=== PATIENT | female | born 1990 | race Caucasian/White ===

== ENCOUNTER 2019-08-28 15:36 | Outpatient (RCR) | payer OTHER, SELFPAY ==
[2019-08-30] MEDS: RHO(D) IMMUNE GLOBULIN 300 MCG SYRINGE IM (09:15)
== END 2019-11-26 23:59 | disposition home or self-care (01) ==
LOC: ANHLAB 15:36
PROVIDERS: PCP Internal Medicine; Visit Provider Obstetrics & Gynecology
DX: Z29.13 Encounter for prophylactic Rho(D) immune globulin (principal); O36.0990 Maternal care for other rhesus isoimmunization, unspecified trimester, not applicable or unspecified; Z3A.00 Weeks of gestation of pregnancy not specified
CPT/HCPCS: 36415; 90384; 96372; J2790

== ENCOUNTER 2019-10-29 11:22 | Outpatient (RCR) | payer OTHER, SELFPAY ==
--- NOTE | ~2019-10-29 | US_ITS ---
EXAMINATION: US OB limited w BPP DATE: 10/29/2019 13:09 INDICATION: Acute renal insufficiency. TECHNIQUE: Real-time pelvic ultrasound was performed. The interpreting radiologist was not present fo r the study. COMPARISON: None. FINDINGS: There is a single living fetus in vertex presentation. The placenta is posterior fundal. heart rate is 138 beats per minute (bpm). Amniotic fluid index measures 6.9 cm which is between [address] deviations below the mean (2.5th%-5th-95%: 6.6-7.5-24.4 cm at 37 weeks estimated gestational a ge). Biophysical profile performed by the technologist: breathing (30 sec sustained breathing in 30 minutes): 2 out of 2 movement (3 gross body movements in 30 minutes): 2 out of 2 tone (one episode of mabktox-fcdacpdfu-eyqtdfs limb movement): 2 out of 2 Amniotic fluid pocket (2 cm): 2 out of 2 Total score: 8 out of 8 IMPRESSION: 1. Single living fetus in vertex presentation with heart rate of 138 bpm. 2. Biophysical profile 8 out of 8. 3. Oligohydramnios with amniotic fluid index of 6.9 cm. Assess for possible leaking fluids. Reviewed, dictated and finalized at location A. F LOCK OPERATOR IMPRESSION: 1. Single living fetus in vertex presentation with heart rate of 138 bpm. 2. Biophysical profile 8 out of 8. 3. Oligohydramnios with amniotic fluid index of 6.9 cm. Assess for possible elliot aarti fluids.
[2019-10-29 14:13] VITALS: BP 111/73; PULSE 97
== END 2019-12-11 14:36 | disposition home or self-care (01) ==
LOC: ANHOBOP 11:22
PROVIDERS: PCP Internal Medicine; Visit Provider Obstetrics & Gynecology
DX: O36.8130 Decreased fetal movements, third trimester, not applicable or unspecified (principal); O41.03X0 Oligohydramnios, third trimester, not applicable or unspecified; Z3A.37 37 weeks gestation of pregnancy
CPT/HCPCS: 59025; 76815; 76819

== ENCOUNTER 2019-11-04 20:30 | Inpatient (IN) | payer OTHER, SELFPAY ==
[2019-11-04 20:45] VITALS: TEMP 37.1
--- NOTE | 2019-11-04 21:13 | WPDHPUPDATE1 ---
History and Physical Update Update Date/Time: 11/04/19 21:13 29 yo at 38w5d who presents in labor. She reports regular contractions. Pt had SROM while being evaluated in triage. She reports good FM and denies any vaginal bleeding. History and Physical has been reviewed, including an updated exam of the patient. There are NO changes in the patient's condition. Risks, benefits, and alternatives have been discussed and questions answered. Patient agrees to proceed with procedure. A/P: admit to L&D routine admission orders cvx /-3 SROM, clear fluid Rh+ GBS pos, will start PCN FHT cat 1 expectant management
[2019-11-04 21:15] VITALS: BMI 35.0
--- NOTE | 2019-11-04 21:21 | LDADM ---
This patient, Keira Mahoney, was admitted to Labor/Delivery/Recovery 109 on 11/04/19 at 20:30. Plans for labor, pain management and were discussed with patient. Patient/family oriented to hospital policies and general routines including ID bracelet, bed and alarms, visiting hours, pain management, procedures, bathroom and other care routines, personal items, smoking policy, room service/diet and guest tray routines, security routines, and visiting hours. Patient/Family are encouraged to report perceived risks to care and to ask questions if they do not understand what they are told or what they should do. See OBIX for further documentation.
[2019-11-04 21:26] LABS: Basophils Absolute Auto 0.1 K/mm3 (0.0-0.1); Basophils Percent Auto 0.7 % (0.2-1.2); Eosinophils Absolute Auto 0.3 K/mm3 (0-0.3); Eosinophils Percent Auto 3.1 % (0-4.4); Hematocrit 37.2 % (37.0-47.0); Hemoglobin 11.6 g/dL (12.0-15.0); Immature Granulocyte Absolute 0.23 K/mm3 (0.00-0.031); Immature Granulocyte Percent A 2.2 % (0-0.5); Lymphocytes Absolute Auto 1.94 K/mm3 (0.9-3.2); Lymphocytes Percent Auto 18.6 % (18.3-44.2); Mean Corpuscular HGB Conc 31.2 g/dl (32-36); Mean Corpuscular Hemoglobin 26.4 pg (26-34); Mean Corpuscular Volume 84.5 fl (80-100); Mean Platelet Volume 10.7 fl (7.4-10.4); Monocytes Absolute Auto 1.1 K/mm3 (0.1-0.6); Monocytes Percent Auto 10.3 % (2.6-8.5); Neutrophils Absolute Auto 6.8 K/mm3 (1.3-6.7); Neutrophils Percent Auto 65.1 % (45.5-73.1); Platelet Count Result 250 k/mm3 (150-375); Red Cell Distribution Width 14.5 % (11.5-14.5); White Blood Count 10.4 K/mm3 (4.5-10.0)
[2019-11-04] MEDS: LACTATED RINGERS 1,000 ML 125 ML IV CONT (21:29)
[2019-11-04] MEDS: AMPICILLIN 2 GM/NS 100 ML 2 GM/100 ML BAG IVPB (21:30)
[2019-11-04 22:30] VITALS: TEMP 36.5
[2019-11-04 22:59] VITALS: BP 117/77; PULSE 99
[2019-11-05] VITALS (68 sets, daily range): BP systolic 80–151; BP diastolic 35–104; PULSE 86–174; RESP 16–20; TEMP 36.6–37.7; O2SAT 95–100
[2019-11-05] MEDS: LACTATED RINGERS 1,000 ML 125 ML IV CONT (01:33)
[2019-11-05] MEDS: AMPICILLIN 1 GM/NS 50 ML 1 GM/50 ML BAG IVPB (01:35)
--- NOTE | 2019-11-05 02:05 | WPDANESEPPF ---
Anes - Initial Pre Proc Eval Procedure: labor epidural Date/Time: 11/05/19 02:05 Surgeon: Javad Lozano MD Pre Op Diagnosis: labor pain Pre Op Diagnosis: CONTRACTIONS Patient Data Age: 29 Gender: F Height: 1.57 m Weight: 87 kg Last Vital Signs Temp 36.6 C 11/05/19 00:04 Pulse 117 H 11/05/19 02:04 BP 119/58 L 11/05/19 02:04 Pulse Ox 98 11/05/19 02:00 Allergies Allergy/AdvReac Type Severity Reaction Status Date / Time No Known Allergies Allergy Verified 10/29/19 14:27 Home Medications Medication Instructions Recorded Confirmed Type PNV cmb#95-ferrous fumarate-FA 1 tablet PO DAILY 10/25/19 10/29/19 History [] albuterol sulfate 2 puff INHALATION QID PRN 10/25/19 10/29/19 History levothyroxine 50 mcg PO DAILY 10/25/19 11/05/19 History Laboratory Tests 11/04/19 11/04/19 11/04/19 21:18 21:18 21:18 WBC 10.4 K/mm3 H K/mm3 (4.5-10.0) RBC 4.40 M/mm3 M/mm3 (4.2-5.4) Hgb 11.6 g/dL L g/dL (12.0-15.0) Hct 37.2 % % (37.0-47.0) MCV 84.5 fl fl (80-100) MCH 26.4 pg pg (26-34) MCHC 31.2 g/dl L g/dl (32-36) RDW 14.5 % % (11.5-14.5) Plt Count 250 k/mm3 k/mm3 (150-375) MPV 10.7 fl H fl (7.4-10.4) Immature Gran % (Auto) 2.2 % H % (0-0.5) Neut % (Auto) 65.1 % % (45.5-73.1) Lymph % (Auto) 18.6 % % (18.3-44.2) Kleberg % (Auto) 10.3 % H % (2.6-8.5) Eos % (Auto) 3.1 % % (0-4.4) Baso % (Auto) 0.7 % % (0.2-1.2) Lymph # (Auto) 1.94 K/mm3 K/mm3 (0.9-3.2) Kleberg # (Auto) 1.1 K/mm3 H K/mm3 (0.1-0.6) Eos # (Auto) 0.3 K/mm3 K/mm3 (0-0.3) Baso # (Auto) 0.1 K/mm3 K/mm3 (0.0-0.1) Abs Immat Gran (auto) 0.23 K/mm3 H K/mm3 (0.00-0.031) Absolute Neuts (auto) 6.8 K/mm3 H K/mm3 (1.3-6.7) Absolute Nucleated RBC 0.0 K/mm3 K/mm3 (0.0-0.012) Nucleated RBC % 0.0 % % (0.0-0.2) RPR Pending Blood Type O Negative Antibody Screen Positive Antibody Identification Pending Antigen Identification Pending KIMMY, IgG Interpret Pending KIMMY, Poly Interpret Pending KIMMY, Complement Interp Pending Patient hx anesthesia problems: none Family hx anesthesia problems: none [facility] Family History Family History Grandparent Cerebrovascular accident Family history of alcoholism Grandparent Diabetes mellitus Mother Breast cancer Hypertension Social History Social History Smoking status: Former smoker Smoking end date: 09/10/11 Alcohol intake: current Substance use: never Spiritual care concerns: No Anes - Eval Final PreProcedure Day of Procedure 11/05/19 02:05 Patient weight: overweight Heart: regular rate and rhythm Lungs: clear to auscultation and normal air movement Airway: Mallampati scale class II Neurological: alert and oriented ASA classification: III Emergent: no Anesthetic plan: proceed Anesthesia type and monitoring: regional epidural and standard monitoring Informed Consent: The patient's anesthetic plan and its attendant risks and benefits were discussed with the patient/family/POA. Questions were solicited and answers provided to the satisfaction of the patient/family/POA.
[2019-11-05] MEDS: FAMOTIDINE 20 MG/2 ML VIAL IV PUSH (02:50)
--- NOTE | 2019-11-05 03:23 | PM.OBPRVD ---
OB - Delivery Note Procedure Procedure: Patient pushed for a spontaneous vaginal delivery. The fetus was delivered atraumatically and placed on the maternal abdomen. The cord was clamped and cut after 1 minute of life. The cord was double clamped and cut and a segment of cord was collected for cord gases. Cord blood was collected for blood type and Coomb's testing. The placenta delivered spontaneously and was noted to be intact. The perineum was inspected and there were no lacerations noted. The uterus was firm and good hemostasis was noted. The patient and fetus were stable in the delivery room. events: Labor Augmentation Intrapartal events: None Induction method: none Delivery augmentation: pitocin Delivery monitor: external FHT Route of delivery: Episiotomy description: None Laceration description: None Specimen: No Estimated blood loss (mL): 250 Anesthesia type: Epidural Disposition: floor () Complications: No immediate complications Baby Date of : 11/05/19 Time of : 03:14 Weeks of gestation at delivery: 38 gender: Female presentation: vertex position: Right Occiput Anterior Placenta delivery description: Spontaneous score one minute: 8 score five minutes: 9
[2019-11-05] MEDS: COSYNTROPIN 0.25 MG/ML VIAL 1 MG IV PUSH (04:20)
[2019-11-05] MEDS: IBUPROFEN 600 MG TABLET PO ×4 (04:32→22:37)
[2019-11-05] MEDS: WITCH HAZEL 40 PADS 1 PAD TOPICAL (04:51)
[2019-11-05] MEDS: BENZOCAINE 20% AER SPR (*SP) 56 GM CAN 1 SPRAY TOPICAL (04:51)
--- NOTE | 2019-11-05 05:05 | WPDANESEPN ---
Anes - Epidural Procedure Note Date/Time: 11/05/19 04:35 SEE NOTE BELOW UNDER TECHNIQUE HEADING!! Consent: I have discussed with the patient/family/POA, the placement of an epidural catheter and the use of epidural narcotic/local anesthetic for labor analgesia and/or postoperative pain management, including associated potential risks, benefits, complications and side effects. I have discussed alternative methods of labor analgesia and/or postoperative pain management. The patient/family/POA, understand(s) and wish(es) to proceed with epidural narcotic/local anesthetic for labor analgesia and/or postoperative pain management. Time-Out: A pre-procedural Time-Out was completed immediately before starting the procedure and confirmed: Patient Identification, Site, Procedure, Patient Position and the Availability of Requisite Equipment. Clinical Indications: labor pain Epidural Insertion Note Patient position: sitting Skin prep: chlorhexidine and sterile drape Needle: 17g Tuohy Catheter: 19g Arrow FlexTip Plus Technique: Loss of resistance. Patient describes previous high block (profound hypotension and numbness on chest with anxiety associated with perceived breathing difficulty) epidural experiences for 2 previous pregnancies. With 2nd she developed PDPH requiring a second blood patch. She is apprehensive but highly motivated to have epidural analgesia this time. She is aware of the increased risk for same. Block note as charted in anesthesia record. However, this post procedure note for communication in EMR. I obtained no detectable loss of resistance and resultant wet tap with very careful advancement of Touhy at L3-4. Patient informed immediately. Agreed to proceed with L2-3 placement. Obtained PADMINI at 6cm and threaded catheter to 9cm. Test dose positive for intrathecal dose with 2ml 1.5% Lidocaine w/ epinephrine 1:200k. Negative aspiration confirmed CSF. Analgesia managed successfully with spinal catheter. Dr Montalvo consulted and personally discussed with patient and spouse PDPH potential and management including Cosyntropin and difficulty with epidural blood patch procedure due to patient's history and present difficulty with obtaining epidural space. Post delivery, Catheter removed w/ tip intact. Cosyntropin 1mg ordered and administered via RN. Level of insertion: L2/3 Catheter skin neo (cm): 9 Length in epidural space (cm): 5 Skin anesthesia: lidocaine 1% Test dose: 1.5% Lidocaine with 1:[id number] Epi and other (Positive! See note above under Technique heading) Observations: CSF (See note above under Technique heading) Complications: other (See above under Techique heading)
--- NOTE | 2019-11-05 05:39 | OBPPTRN ---
Patient transferred to post room #280 via wheelchair. Support person, Dinesh, present. Oriented to unit, room, information board, rooming in, admission packet and security measures. Patient verbalizes understanding.
[2019-11-05 07:53] LABS: Rapid Plasma Reagin Non-Reactive (NonReactive)
--- NOTE | 2019-11-05 08:20 | PC.NURSE ---
Consulted with patient, mother requested assist with latching due to headache. Reviewed feeding cues, frequencies, duration of feedings, feeding elimination flow sheet, and signs of adequate intake. Demonstrated stimulation techniques to wake for feeding. Assisted with to breast. Reviewed positioning/alignment, holding breast and asymmetrical latch on. Max assistance to latch infant correctly. Infant nursed eagerly, with steady draws and occasional swallowing noted. Reviewed signs of a correct latch, effective nursing and suck swallow ratio. Infant was able to maintain latch without discomfort to mother. Nipple care reviewed. Instructed mother to call out for RN assistance if she is unable to latch infant for feeding or she has discomfort with nursing. Instructed feeding should be initiated three hours from start of last feeding or if feeding cues are noted before. Mother voiced understanding of information shared.
--- NOTE | 2019-11-05 08:40 | PCDIET ---
Assisted with switching to other breast.
[2019-11-05] MEDS: MULTIVIT/MIN/PREN/FOL AC/IRON TABLET 1 TAB PO (09:15)
--- NOTE | 2019-11-05 13:30 | PC.NURSE ---
Anesthesia here to see patient about her possible spinal headache.
[2019-11-05] MEDS: CYCLOBENZAPRINE HCL 10 MG TABLET PO (17:37)
[2019-11-06] MEDS: IBUPROFEN 600 MG TABLET PO ×3 (05:08→17:45)
[2019-11-06 05:37] LABS: Hematocrit 32.6 % (37.0-47.0); Hemoglobin 10.1 g/dL (12.0-15.0)
[2019-11-06 08:20] VITALS: BP 108/71; PULSE 86; RESP 16; TEMP 36.8; O2SAT 98
--- NOTE | 2019-11-06 08:43 | PM.OBPNVD ---
OB - PN: Subj Subjective Date/time seen: 11/06/19 08:43 Narrative: Headache is better with Fioricet. Got some sleep after Flexeril last night. OB - PN: Obj Data Labs CBC & Chem 7: 11/06/19 05:05 Labs: Laboratory Results - last 24 hr 11/06/19 05:05 Hgb 10.1 L Hct 32.6 L OB - PN A/P Plan Comments: A: PPD#1, doing well overall. Spinal headache. P: Routine care. Exam Psych: Other: AVSS ABD soft, nontender, fundus firm EXT nontender
[2019-11-06] MEDS: MULTIVIT/MIN/PREN/FOL AC/IRON TABLET 1 TAB PO (09:04)
--- NOTE | 2019-11-06 09:30 | PC.NURSE ---
Consulted with patient, mother reports she continues to have difficulties latching infant due to headache. Assisted with to breast in side lying. Reviewed positioning/alignment, holding breast and asymmetrical latch on. Max assistance to latch infant correctly. nursed eagerly, with steady draws and occasional swallowing noted. Reviewed signs of a correct latch, effective nursing and suck swallow ratio. was able to maintain latch without discomfort to mother. Nipple care reviewed. Instructed mother to call out for RN assistance if she is unable to latch for feeding or she has discomfort with nursing. Instructed feeding should be initiated three hours from start of last feeding or if feeding cues are noted before. Mother voiced understanding of information shared.
--- NOTE | 2019-11-06 12:45 | WPDANLDPN2 ---
Anes-Prog Note L&D Date/Time: 11/06/19 12:45 Comfortable throughout: labor and delivery Neuraxial method: epidural Epidural/Spinal procedure site: clean & non-tender Neuro status: Neuro function grossly intact. Cardiovascular status: normal Respiratory status: normal Airway patency: baseline Mental status: baseline Post-Op hydration status: normal Vital Signs: Last Vital Signs Temp 36.8 C 11/06/19 08:20 Pulse 86 11/06/19 08:20 Resp 16 11/06/19 08:20 BP 108/71 11/06/19 08:20 Pulse Ox 98 11/06/19 08:20 Post-procedural complaints: none Patient feedback: Patient satisfied with anesthetic care.
--- NOTE | 2019-11-06 12:49 | PC.NURSE ---
Consult with pt., mother states she continues with difficulties latching due to headache. Consulted with patient, reviewed feeding cues, frequencies, duration of feedings, feeding elimination flow sheet, and signs of adequate intake. Demonstrated stimulation techniques to wake infant for feeding. Assisted with infant to breast. Reviewed positioning/alignment, holding breast and asymmetrical latch on. Infant was [able/unable] to latch correctly. nursed eagerly, with steady draws and [frequent/occasional] swallowing noted. Reviewed signs of a correct latch, effective nursing and suck swallow ratio. Infant was[able/unable] to maintain latch without discomfort to mother. Nipple care reviewed. Instructed mother to call out for RN assistance if she is unable to latch infant for feeding or she has discomfort with nursing. Instructed feeding should be initiated three hours from start of last feeding or if feeding cues are noted before. Mother voiced understanding of information shared.
[2019-11-06] MEDS: ACETAMINOPHEN 325 MG TABLET 650 MG PO (16:07)
[2019-11-06 21:45] VITALS: BP 102/66; PULSE 74; RESP 18; TEMP 36.8
[2019-11-06] MEDS: CYCLOBENZAPRINE HCL 10 MG TABLET PO (23:27)
[2019-11-07] MEDS: IBUPROFEN 600 MG TABLET PO ×3 (01:39→14:02)
[2019-11-07 07:50] VITALS: BP 111/69; PULSE 83; RESP 18; TEMP 37.2; O2SAT 99
[2019-11-07] MEDS: MULTIVIT/MIN/PREN/FOL AC/IRON TABLET 1 TAB PO (08:14)
--- NOTE | 2019-11-07 09:15 | PM.OBDSVD ---
DS: Diagnosis Discharge Diagnosis (1) Normal delivery at term: Code(s): O80 - Encounter for full-term uncomplicated delivery Status: Acute OB - DS: Summary OB Procedures : None OB Procedures Intrapartum: Spontaneous Vag Delivery OB Procedures: : None Discharge Plan Discharge Attending physician on discharge: Javad Lozano Discharging Clinician: Javad Lozano Patient Disposition: Home, Self-Care Activity: pelvic rest Diet: regular Discharge Instructions: Call or return if temperature above 100.4? F, increased abdominal pain, increased vaginal bleeding or any new problems. Stand Alone Forms: General Discharge Information Follow-up/Referrals: Javad Lozano MD [Physician] - (2 weeks) Discharge Medications: New ibuprofen 600 mg tablet 600 mg PO Q6H PRN (Reason: cramps) Qty: 30 RF: 0 aqgmtvcjng-wggttkvuhsrms-aoci [Fioricet] 50-300-40 mg capsule 1 cap PO Q4-6H PRN (Reason: headache) Qty: 30 RF: 0 oxycodone-acetaminophen [Percocet] 5-325 mg tablet 1 tablet PO Q6H PRN (Reason: headache) Qty: 20 RF: 0 cyclobenzaprine 10 mg tablet 10 mg PO HS PRN (Reason: pain) Qty: 20 RF: 0 No Action levothyroxine 50 mcg Tablet 50 mcg PO DAILY RF: 0 albuterol sulfate 90 mcg/actuation Hfa Aerosol Inhaler 2 puff INHALATION QID PRN (Reason: Dyspnea) RF: 0 PNV cmb#95-ferrous fumarate-FA [] 28 mg iron- 800 mcg Tablet 1 tablet PO DAILY RF: 0 Date of admission: 11/04/19 20:30 Primary Care Provider: UNKNOWN,DOCTOR Admitting Provider: Javad Lozano Attending physician on admission: Javad Lozano
--- NOTE | 2019-11-07 09:16 | PM.OBPNVD ---
OB - PN: Subj Subjective Date/time seen: 11/07/19 09:16 Narrative: Pain OK. Headache intermittent. Would like to go home. OB - PN: Obj Data Labs CBC & Chem 7: 11/06/19 05:05 OB - PN A/P Plan Comments: A: PPD#2, doing well. P: Home to f/u 6 weeks. Exam Psych: Other: AVSS ABD soft, nontender, fundus firm EXT nontender
--- NOTE | 2019-11-07 09:40 | PC.NURSE ---
Consult with pt., mother continues with headache and is putting to breast as she can. Mother is able to latch infant deeply without assist, reporting no discomfort. Infant nursing eagerly with long draws and occasional swallowing. Mother will bottle feed when she is unable to breastfeed. is able to bottle feed without issues. Mother will pump every three hours to assist with milk production. Mother has breastfed other children and is comfortable aspects of feeding. Mother is feeding as required and waking infant to feed if needed. Infant is currently meeting outcomes for weight, output, jaundice and feeding frequencies. Mother states she feels confident to continue current feeding plan until headache is resolved, then plans to breastfeed . Reviewed transition to breast milk, signs of adequate intake, and engorgement/relief. Instructed to call ICP if intake/output less than required. Reviewed regular medications mother is taking. Information provided per Lynn. Reviewed community resources on the [employer] website and in the Mom/Baby guide. Information on outpatient services provided. Mother has no further questions at this time.
--- NOTE | 2019-11-07 12:43 | PC.NURSE ---
Discharge delayed due to Dr. Lozano needing to sign medication scripts.
--- NOTE | 2019-11-07 16:16 | PC.NURSE ---
Patient was slow to depart from hospital after being discharged due to pt. having a spinal headache. Patient was transported to car via wheelchair.
== END 2019-11-07 15:39 | disposition home or self-care (01) | DRG 807 ==
LOC: ANHLDR 21:25 → ANHOB2 11-05 05:48
PROVIDERS: Admitting Provider Student in an Organized Health Care Education/Training Program; Visit Provider Obstetrics & Gynecology
DX: O99.824 Streptococcus B carrier state complicating childbirth (principal); Z37.0 Single live birth; Z3A.38 38 weeks gestation of pregnancy; O36.8330 Maternal care for abnormalities of the fetal heart rate or rhythm, third trimester, not applicable or unspecified; O99.284 Endocrine, nutritional and metabolic diseases complicating childbirth; E03.9 Hypothyroidism, unspecified
CPT/HCPCS: 36415; 85014; 85018; 85025; 86592; 86850; 86880; 86900; 86901; 86902; A9270; J0290; J0834; J2590; J2795; J7120

== ENCOUNTER → 2020-12-30 07:46 | Outpatient (CLI) | payer OTHER, SELFPAY ==
--- NOTE | ~2020-12-30 | MR_ITS ---
EXAMINATION: MR knee LT wo con DATE: 12/30/2020 08:30 INDICATION: Left knee pain. TECHNIQUE: Magnetic resonance imaging (MRI) of the left knee was performed without intravenous contra st. Sequences included axial PD-weighted FS FSE, coronal PD-weighted FSE and PD-weighted FS FSE, sagi ttal PD-weighted FSE, and sagittal T2-weighted FS FSE. COMPARISON: None. FINDINGS: Medial compartment: Medial meniscus is normal. Medial compartment cartilage is normal. Lateral compartment: Lateral meniscus is normal. Lateral compartment cartilage is normal. Patellofemoral compartment: There is shallow partial-thickness cartilage loss of patellar medial facet. Trochlear cartilage is no rmal. Ligaments and tendons: The anterior and posterior cruciate ligaments are normal. Medial collateral ligament and lateral chaz ateral ligament complex are normal. There is mild patellar tendinopathy. Fluid: There is a small knee joint effusion. IMPRESSION: 1. Mild patellar chondrosis. 2. Small knee joint effusion. Reviewed, dictated and finalized at location B.
== END ==
PROVIDERS: PCP Internal Medicine; Visit Provider Physician Assistant Medical
DX: M25.462 Effusion, left knee (principal)
CPT/HCPCS: 73721

== ENCOUNTER → 2021-02-18 09:22 | Outpatient (CLI) | payer OTHER, SELFPAY ==
--- NOTE | ~2021-02-18 | MR_ITS ---
EXAMINATION: MR lumbar spine wo con DATE: 02/18/2021 10:00 INDICATION: Left-sided low back pain. Left leg pain. TECHNIQUE: Magnetic resonance imaging (MRI) of the lumbar spine was performed without intravenous con trast. Sequences included sagittal T2-weighted FSE, sagittal T2-weighted FS FSE, sagittal T1-weighted FSE, and axial T2-weighted FSE. COMPARISON: None FINDINGS: Bone alignment is normal. Vertebral body heights and intervertebral disc heights are normal . The distal spinal cord signal intensity is normal. The conus medullaris is at L1. The following dis c levels are specifically discussed: L1-L2: The disc does not extend beyond the endplate margin. There is no facet joint osteoarthritis. T here is no neural foraminal stenosis. There is no central canal stenosis. L2-L3: The disc does not extend beyond the endplate margin. There is no facet joint osteoarthritis. T here is no neural foraminal stenosis. There is no central canal stenosis. L3-L4: The disc does not extend beyond the endplate margin. There is mild bilateral facet joint osteo arthritis. There is no neural foraminal stenosis. There is no central canal stenosis. L4-L5: There is a left foraminal protrusion. There is mild bilateral facet joint osteoarthritis. Ther e is mild left neural foraminal stenosis. There is no central canal stenosis. L5-S1: The disc does not extend beyond the endplate margin. There is mild bilateral facet joint osteo arthritis. There is no neural foraminal stenosis. There is no central canal stenosis. IMPRESSION: 1. Mild lumbar spondylosis. Reviewed, dictated and finalized at location A. IMPRESSION: 1. Mild lumbar spondylosis.
== END ==
PROVIDERS: Visit Provider Specialist
DX: M51.36 Other intervertebral disc degeneration, lumbar region (principal); M47.816 Spondylosis without myelopathy or radiculopathy, lumbar region
CPT/HCPCS: 72148

== ENCOUNTER 2021-12-09 01:13 | Day surgery (SDC) | payer OTHER, SELFPAY ==
[2021-12-01 15:15] VITALS: BMI 24.7
--- NOTE | 2021-12-01 15:16 | SUR.PREOP ---
Report to the Outpatient Waiting Room, entrance under the green pavilion located off [facility], at time 1030 on date 12/09/21 . OR Time: _1230 . - You and your visitor will be asked a series of questions to screen for COVID 19 for your protection. - A mask is required within the hospital. Preoperative COVID Testing Requirements: No COVID Test needed if: (proof is required; if not received patient will have Rapid Test prior to entry) - Patient has received COVID Vaccine at least 14 days prior to procedure date or - Patient has positive COVID test result within last 90 days of surgery date. COVID Test needed if above criteria is not met If not COVID vaccinated a COVID test must be conducted within 72 hours of surgery and patient is asked to isolate self from time of testing until procedure. You will go to the [facility] for your COVID testing. The [facility] site is located at the corner of [address] [facility]. You will only be called if COVID results are positive and your surgeon may reschedule your elective surgery date. Patients may have clear liquids (water, carbonated beverages, clear teas, apple juice) until 3 hours prior to surgery with a maximum of 20 ounces. - No food from midnight until time of surgery - Infants may have breast milk until 4 hours before surgery, formula 6 hours prior to surgery. - Children will be allowed to drink immediately following surgery. If applicable, please bring a bottle or sippy cup to assist with drinking. Juice, water, soda, and popsicles are readily available. For infants on formula, please bring formula the day of surgery. Pacifiers are allowed. Take the following medications with a SIP of water the morning of surgery: __cetirazine,levothyroxine Medications to discontinue per physician ___vitamins Date to take last dose__12/06/21 Please no make-up, nail belarusian, hairspray, perfume, deodorant, or body powder the day of surgery. No jewelry (including any body piercings) or valuables the day of surgery, leave them at home. Please take a shower or bath the night before, or the morning of, surgery with an antibacterial soap. Wear comfortable, loose fitting clothing. Children are encouraged to wear pajamas. hibiclens shower am of surgery. - Jewelry must be removed prior to entering the operating room. Rings and piercings that are not removed may be cut off. - The hospital will not accept responsibility for valuables. - Please leave all valuables, including medications, at home the day of surgery. If you are going home after surgery, a licensed electric lift truck driver must drive you home. - NO public transportation without another adult. - We recommend that an adult stay with you for 24 hours following discharge. - We also recommend that you do not drive, make important decision, drink alcoholic beverages, or take any drugs that were not prescribed by your health care provider for at least 24 hours after your discharge time. For Pediatric surgeries, we recommend two adults accompany the child home (only one inside the building at this time). One visitor will be allowed to accompany the patient into the hospital. Patients visitor will be instructed to remain with patient at all times or leave the building. We will allow the visitor to come back to the postoperative area when patient is ready. Follow any additional instructions given to you from your surgeon. Telephone instructions given to _cristofer jane and asked if any additional questions and then verbalized understanding. Patient advised to call surgeon office or pre surgery nurse liaison [phone] if any additional questions.
--- NOTE | 2021-12-08 16:21 | PM.SD2 ---
Same Day Admit/Disch: HPI History of Present Illness Chief complaint: umbilical hernia Narrative: Keira Mahoney is a 31 year old female who delivered a baby in October of 2019. Towards the end of her she noticed a pretty significant umbilical bulge. Following delivery, this improved. I saw her in January of 2020 and she had a small relatively asymptomatic umbilical hernia. She opted to watch this. She came back in August of 2021 with the hernia being a little larger and considerably more painful. By exam it did not really changed much in size. She desires repair and is taken to surgery now for umbilical hernia repair. She has also had a laparoscopic appendectomy by me in 2018. COUNT INCLUDES THE [facility] Past Medical History Medical History Asthma Thyroid disease Surgical History Surgical History History of appendectomy 2018, OA Dr. 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 Spiritual care concerns: No Same Day Admit/Disch: Med Pre-admit Medications Home Medications Medication Instructions Recorded Confirmed Type albuterol sulfate 2 puff INHALATION QID PRN 10/25/19 12/09/21 History levothyroxine 50 mcg PO DAILY 10/25/19 12/09/21 History cetirizine 10 mg capsule 10 mg PO DAILY 12/03/19 12/09/21 History cholecalciferol (vitamin D3) 125 125 mcg PO DAILY 01/12/20 12/09/21 History mcg (5,000 unit) capsule multivitamin 1 tablet PO DAILY 08/17/21 12/09/21 History vitamin B complex 1 tablet PO DAILY 08/17/21 12/09/21 History hydrocodone-acetaminophen 1 - 2 tablet PO Q6H PRN #7 tablet 12/09/21 Rx ibuprofen 600 mg PO Q6H PRN #14 tablet 12/09/21 Rx Exam Const: General: comfortable, no acute distress, alert and awake HENMT: Head: normocephalic and atraumatic Mouth: Yes Normal oral and palatal mucosa present Eyes: Conjunctivae: conjunctivae normal Pupils: Equal, round and reactive pupils present EOM: EOMs intact bilaterally Neck: Neck: normal visual inspection, no lymphadenopathy and nontender Resp: Effort & Inspection: normal respiratory effort Auscultation: clear to auscultation bilaterally Cardio: Rate: regular rate Rhythm: regular rhythm Heart sounds: no gallops, no murmurs and no rubs GI: Inspection: non-distended, scaphoid, scar (Left-sided laparoscopic trocar scars) and visible herniation (Umbilical) GI Palp: Yes Soft to palpation, No Tenderness to palpation present (GI), No Hepatomegaly present, No Splenomegaly present and Yes Hernia present (Reducible small umbilical hernia) Auscultation: normal bowel sounds Skin: Lesions: no lesions Rashes: no rashes Neuro: General: no focal motor deficits and CN's II-XI intact bilaterally Cranial nerves: Yes Equal, round and reactive pupils present, Yes Bilaterally intact EOM present, Yes facial symmetry and Yes Midline tongue present Speech: normal speech Motor exam (neuro): 5/5 motor strength present throughout and Motor abnormalities not present Extrem: General: no clubbing, cyanosis or edema and edema Psych: Affect: normal affect Thought process: Normal thought process present Insight: Good insight present (Psych) DS: Summary Time Spent with Patient Time attestation: Total time spent providing and/or coordinating discharge ser
[2021-12-09 10:33] VITALS: BP 103/60; PULSE 88; RESP 16; TEMP 37.1; O2SAT 100
[2021-12-09 10:34] VITALS: BMI 24.3
[2021-12-09] MEDS: LACTATED RINGERS 1,000 ML 30 ML IV CONT ×2 (10:56→13:55)
[2021-12-09] MEDS: KETOROLAC 15 MG/ML VIAL (*BKC) IV PUSH (10:57)
[2021-12-09] MEDS: ACETAMINOPHEN 500 MG TABLET 1000 MG PO (10:58)
--- NOTE | 2021-12-09 12:40 | WPDANESEPPF ---
Anes - Initial Pre Proc Eval Procedure: Operation Date: 12/09/21 12:30 Proposed Procedures p Umbilical Hernia Repair with Mesh - Gurinder Wilkerson MD Date/Time: 12/09/21 12:40 Surgeon: Gurinder Wilkerson MD Pre Op Diagnosis: umbilical hernia Patient Data Age: 31 Gender: F Height: 1.57 m Weight: 60.5 kg Last Vital Signs Temp 37.1 C 12/09/21 10:33 Pulse 88 12/09/21 10:33 Resp 16 12/09/21 10:33 BP 103/60 12/09/21 10:33 Pulse Ox 100 12/09/21 10:33 Allergies Allergy/AdvReac Type Severity Reaction Status Date / Time No Known Allergies Allergy Verified 12/09/21 10:30 Home Medications Medication Instructions Recorded Confirmed Type albuterol sulfate 2 puff INHALATION QID PRN 10/25/19 12/09/21 History levothyroxine 50 mcg PO DAILY 10/25/19 12/09/21 History cetirizine 10 mg capsule 10 mg PO DAILY 12/03/19 12/09/21 History cholecalciferol (vitamin D3) 125 125 mcg PO DAILY 01/12/20 12/09/21 History mcg (5,000 unit) capsule multivitamin 1 tablet PO DAILY 08/17/21 12/09/21 History vitamin B complex 1 tablet PO DAILY 08/17/21 12/09/21 History Patient hx anesthesia problems: post op nausea/vomiting Family hx anesthesia problems: none Results Review: All pre-operative results and documents have been reviewed as part of the pre-operative evaluation. [facility] Past Medical History Medical History Asthma Thyroid disease Surgical History Surgical History History of appendectomy 2018, OA Dr. 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 Informed Consent: The patient's anesthetic plan and its attendant risks and benefits were discussed with the patient/family/POA. Questions were solicited and answers provided to the satisfaction of the patient/family/POA.
[2021-12-09] MEDS: SCOPOLAMINE 1.5 MG PATCH TRANSDERM (12:45)
--- NOTE | 2021-12-09 13:04 | WPDHPUPDATE1 ---
History and Physical Update Update Date/Time: 12/09/21 13:04 History and Physical has been reviewed, including an updated exam of the patient. There are NO changes in the patient's condition. Risks, benefits, and alternatives have been discussed and questions answered. Patient agrees to proceed with procedure.
[2021-12-09] MEDS: ceFAZolin 2 GM/D5W 50 ML 2 GM/50 ML BAG IVPB (13:08)
[2021-12-09 13:54] VITALS: BP 98/68; PULSE 98; RESP 16; O2SAT 100
[2021-12-09 14:00] VITALS: BP 108/57; PULSE 85; RESP 16; O2SAT 100
--- NOTE | 2021-12-09 14:14 | P.OP_ITS ---
Procedure Note - Detailed Date of Procedure 12/09/21 Pre-op Diagnosis umbilical hernia Post-op Diagnosis Same Procedure Performed Umbilical hernia repair with 4.[address] underlay mesh Surgeon Gurinder Wilkerson MD Customer Response Representative Milady MCDANIEL Anesthesia General (G IV S) and Local (0.25% Marcaine with epinephrine) Indications Patient had an umbilical hernia developed towards the end of her most recent . Initially after her baby was born hernia got smaller but it has since then become larger and symptomatic. She is taken to surgery now for repair Findings 1 cm x 0.6 cm defect Description of Procedure Patient was taken to surgery and placed in supine position. Anesthesia was induced and the abdomen is prepped and draped. The proposed incision was marked along the lower margin of the umbilicus. Local was then infiltrated into the skin and the surrounding subcutaneous. Incision was made and deepened through the subcutaneous. We found the hernia sac and dissected down to the neck of the hernia and the fascial edge. I then carefully dissected circumferentially around the hernia defect. I opened the hernia sac sharply and then excised the hernia sac from the fascial margin. I trimmed the hernia sac remnants from the umbilical skin. These remnants were discarded. I then excised some properitoneal fat that was in the hernia sac. This was discarded as well. I placed a finger in the defect and found no other hernia defects in the vicinity. A 4.[address] patch was chosen. It was placed in the defect. Cranial and caudal transfascial sutures of 0 Ethibond were then placed. The sutures were placed in such a fashion that they would draw the edges of the hernia defect towards 1 another once they were tied. The sutures had the desired effect. We cut the strap to the hernia mesh away and discarded it. The hernia defect was closed with [id number] mattress sutures of 0 Ethibond. This suture also incorporated a bit of mesh. I then infiltrated additional local around the area of the repair. The umbilical skin was sutured to the fascia with 3-0 Vicryl suture. Subcutaneous sutures of 3-0 Vicryl were placed. 4-0 Vicryl subcuticular skin sutures were placed to loosely approximate the skin. The skin was finally closed with a running 4-0 Monocryl skin suture. The wound was dressed with Exofin surgical adhesive. Patient was awakened and taken to recovery in good condition. Sponge and needle counts were correct x2. Estimated Blood Loss -5.0 Drains No Packing No Pathology None sent Complications No immediate complications Condition Stable Disposition Same day
[2021-12-09 14:30] VITALS: BP 94/61; PULSE 72; RESP 16; O2SAT 100
== END 2021-12-09 14:50 | disposition home or self-care (01) ==
PROVIDERS: PCP Internal Medicine; Visit Provider Surgery
PROC: (CPT 49585; principal; 2021-12-09 12:30)
DX: K42.9 Umbilical hernia without obstruction or gangrene (principal); Z79.51 Long term (current) use of inhaled steroids; J45.909 Unspecified asthma, uncomplicated; E03.9 Hypothyroidism, unspecified; F17.290 Nicotine dependence, other tobacco product, uncomplicated
CPT/HCPCS: 49585; A9270; C1781; J0690; J1100; J1885; J2250; J2405; J2704; J3010; J7120

== ENCOUNTER 2022-02-23 14:20 | Outpatient (CLI) | payer OTHER, SELFPAY | END 2022-02-23 14:21 | disposition home or self-care (01) | LOC: ANHLAB 14:23 | PROVIDERS: PCP Internal Medicine; Visit Provider Obstetrics & Gynecology | DX: B82.0 Intestinal helminthiasis, unspecified (principal) | CPT/HCPCS: 87045; 87177; 87209; 87427 ==

== ENCOUNTER 2024-06-11 01:47 | Day surgery (SDC) | payer OTHER, SELFPAY ==
[2024-06-02 13:01] VITALS: BMI 28.4
--- NOTE | 2024-06-02 13:03 | PC.NURSE ---
Report to the Outpatient Waiting Room, entrance under the green pavilion located off [facility], at time _1045_ on date _[id number]_. Planned Procedure Time: _1245_.? Time changes happen often and if your time is changed the preop area will call you the afternoon before. - You and your visitor will be asked to self-screen and do not enter if you have any COVID symptoms. Please call surgeon if you need to reschedule. - A mask is optional within the hospital at this time. Patients may have clear liquids (water, carbonated beverages, clear teas, apple juice) until 3 hours prior to surgery with a maximum of 20 ounces. - No food from midnight until time of surgery and no smoking Take only the following medications with a SIP of water on the morning of surgery: ___Clonazepam if needed. DO NOT STOP ANY OF YOUR OTHER PRESCRIPTION MEDICATIONS PRIOR TO SURGERY EXCEPT THE FOLLOWING Medications to discontinue per physician All vitamins and supplements. Date to take last gzwg___[id number] Please no make-up, nail chinese, hairspray, perfume, deodorant, or body powder the day of surgery.? No jewelry (including any body piercings) or valuables the day of surgery, leave them at home.? Please take a shower or bath the night before, or the morning of, surgery with an antibacterial soap.? Wear comfortable, loose fitting clothing.? - Jewelry must be removed prior to entering the operating room.? Rings and piercings that are not removed may be cut off. - The hospital will not accept responsibility for valuables.? - Please leave all valuables, including medications, at home the day of surgery. If you are going home after surgery, a licensed water taxi driver must drive you home.? - NO public transportation without another adult if you receive anesthesia. - We recommend that an adult stay with you for 24 hours following discharge. - We also recommend that you do not drive, make important decision, drink alcoholic beverages, or take any drugs that were not prescribed by your health care provider for at least 24 hours after your discharge time. Follow any additional instructions given to you from your surgeon. Telephone instructions given to __Keira___and asked if any additional questions and then verbalized understanding. Patient advised to call surgeon office or pre surgery nurse liaison [phone] if any additional questions.
[2024-06-11] VITALS (10 sets, daily range): BP systolic 109–116; BP diastolic 63–88; PULSE 71–108; RESP 13–20; TEMP 36.4–36.7; O2SAT 100; BMI 29.0
[2024-06-11 11:28] LABS: BEDSIDEPREGUCG Negative (Negative)
[2024-06-11] MEDS: LACTATED RINGERS 1,000 ML 30 ML IV CONT ×2 (12:00→14:38)
--- NOTE | 2024-06-11 12:08 | PM.IMHP ---
H&P: HPI History of Present Illness Date/Time: 06/11/24 12:08 Chief Complaint: Heavy periods Narrative: 34 y/o with menometrorrhagia and a small fibroid. She also has a solid appearing 2.3 cm right adnexal mass. She does not desire any future childbearing. Her has had a vasectomy. She is interested in surgical management of her problem. Review of Systems Review of Systems: All systems reviewed & are unremarkable except as noted in HPI and below PMFSH Past Medical History Medical History Anxiety Asthma environmental and exercise induced Fibromyalgia Herniated disc Hypothyroidism Kidney symptom or sign Bilirubin abnormal Palpitations Thyroid antibody positive Thyroid disease Umbilical hernia without obstruction and without gangrene Surgical History Surgical History H/O umbilical hernia repair w mesh 12/09/21 History of appendectomy 2018, OA Dr. Wilkerson Family History Family History Grandparent Cerebrovascular accident Family history of alcoholism Acute myocardial infarction Heart disease Grandparent Diabetes mellitus Malignant neoplasm of prostate Mother Breast cancer diagnosed age 47 Father Depression Diabetes mellitus Sibling Depression Social History Social History Smoking packs per day: 1 Smoking cigarettes per day: 20.0 Years smoked: 5 Smoking pack-years: 5.00 Smoking status: Former smoker Tobacco type: cigarettes and e-cigarettes/vaping Smoking end date: 06/02/20 Additional smoking assessment comments: quit vaping also. 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 Spiritual care concerns: No Meds Home Medications and Allergies Home Medications Medication Instructions Recorded Confirmed Type cetirizine 10 mg capsule (Zyrtec) 10 mg PO DAILY 12/03/19 06/02/24 History ondansetron 4 mg disintegrating 4 mg PO Q6H PRN Nausea 04/17/23 06/02/24 History tablet magnesium 200 mg tablet 200 mg PO DAILY 12/13/23 06/02/24 History collagen 1 tab-cap BYMOUTH DAILY 01/21/24 06/02/24 History multivitamin with iron (Daily 1 tablet PO DAILY PRN only around 01/21/24 06/02/24 History Vitamin with Iron tablet) menstrual period albuterol sulfate 90 mcg/actuation See Rx Instructions .Route 04/11/24 06/02/24 Rx aerosol inhaler .COMPLEX #8.5 grams cholecalciferol (vitamin D3) 125 125 mcg PO DAILY 06/02/24 06/02/24 History mcg (5,000 unit) tablet (Vitamin D3) clonazepam 0.5 mg tablet 0.5 mg PO TID PRN insominia 06/02/24 06/02/24 History escitalopram oxalate 10 mg tablet 10 mg PO HS 06/02/24 06/02/24 History Allergies Allergy/AdvReac Type Severity Reaction Status Date / Time semaglutide [From [facility]] AdvReac felt Verified 06/02/24 12:46 hungover Vital Signs Vital Signs - 24 hr 06/11/24 11:21 Temperature 36.7 C Pulse Rate 71 Respiratory Rate 16 Blood Pressure 116/70 Pulse Oximetry 100 Oxygen Delivery Room Air Exam Const: Orientation/consciousness: patient oriented x3 Other: Well-developed, well-nourished female in no acute distress. Neck: Thyroid: thyroid normal Lymphatic: no lymphadenopathy noted (in neck, axilla or inguinal nodes) Resp: Effort & Inspection: normal respiratory effort Auscultat
--- NOTE | 2024-06-11 12:12 | WPDHPUPDATE1 ---
History and Physical Update Update Date/Time: 06/11/24 12:12 History and Physical has been reviewed, including an updated exam of the patient. There are NO changes in the patient's condition. Risks, benefits, and alternatives have been discussed and questions answered. Patient agrees to proceed with procedure.
[2024-06-11] MEDS: ACETAMINOPHEN 500 MG TABLET 1000 MG PO (12:20)
[2024-06-11] MEDS: KETOROLAC 15 MG/ML VIAL (*BKC) IV PUSH (12:20)
--- NOTE | 2024-06-11 12:53 | WPDANESEPPF ---
Anes - Initial Pre Proc Eval Procedure: Operation Date: 06/11/24 12:45 Proposed Procedures p Laparoscopic Right Salpingo-oophorectomy, Hysteroscopy Dilation and Curettage, Sabrina Endometrial Ablation - Javad Lozano MD Date/Time: 06/11/24 12:53 Surgeon: Javad Lozano MD Pre Op Diagnosis: Rt Ovarian Mass, pelvic pain, Dysmenorrhea, Patient Data Age: 34 Gender: F Height: 1.57 m Weight: 72.1 kg Last Vital Signs Temp 36.7 C 06/11/24 11:21 Pulse 71 06/11/24 11:21 Resp 16 06/11/24 11:21 BP 116/70 06/11/24 11:21 Pulse Ox 100 06/11/24 11:21 O2 Del Method Room Air 06/11/24 11:21 Allergies Allergy/AdvReac Type Severity Reaction Status Date / Time semaglutide [From [facility]] AdvReac felt Verified 06/02/24 12:46 hungover Home Medications Medication Instructions Recorded Confirmed Type cetirizine 10 mg capsule (Zyrtec) 10 mg PO DAILY 12/03/19 06/02/24 History ondansetron 4 mg disintegrating 4 mg PO Q6H PRN Nausea 04/17/23 06/02/24 History tablet magnesium 200 mg tablet 200 mg PO DAILY 12/13/23 06/02/24 History collagen 1 tab-cap BYMOUTH DAILY 01/21/24 06/02/24 History multivitamin with iron (Daily 1 tablet PO DAILY PRN only around 01/21/24 06/02/24 History Vitamin with Iron tablet) menstrual period albuterol sulfate 90 mcg/actuation See Rx Instructions .Route 04/11/24 06/02/24 Rx aerosol inhaler .COMPLEX #8.5 grams cholecalciferol (vitamin D3) 125 125 mcg PO DAILY 06/02/24 06/02/24 History mcg (5,000 unit) tablet (Vitamin D3) clonazepam 0.5 mg tablet 0.5 mg PO TID PRN insominia 06/02/24 06/02/24 History escitalopram oxalate 10 mg tablet 10 mg PO HS 06/02/24 06/02/24 History Laboratory Tests 06/11/24 11:21 POC Urine HCG, Qual Negative (Negative) Patient hx anesthesia problems: none Family hx anesthesia problems: none Results Review: All pre-operative results and documents have been reviewed as part of the pre-operative evaluation. [facility] Past Medical History Medical History Anxiety Asthma environmental and exercise induced Fibromyalgia Herniated disc Hypothyroidism Kidney symptom or sign Bilirubin abnormal Palpitations Thyroid antibody positive Thyroid disease Umbilical hernia without obstruction and without gangrene Surgical History Surgical History H/O umbilical hernia repair w mesh 12/09/21 History of appendectomy 2018, OA Dr. Wilkerson Family History Family History Grandparent Cerebrovascular accident Family history of alcoholism Acute myocardial infarction Heart disease Grandparent Diabetes mellitus Malignant neoplasm of prostate Mother Breast cancer diagnosed age 47 Father Depression Diabetes mellitus Sibling Depression Social History Social History Smoking packs per day: 1 Smoking cigarettes per day: 20.0 Years smoked: 5 Smoking pack-years: 5.00 Smoking status: Former smoker Tobacco type: cigarettes and e-cigarettes/vaping Smoking end date: 06/02/20 Additional smoking assessment comments: quit vaping also. 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
[2024-06-11] MEDS: SCOPOLAMINE 1 MG PATCH 1 PATCH TRANSDERM (13:00)
[2024-06-11] MEDS: LIDOCAINE HCL 1% LOCAL INJ 20 ML VIAL 10 ML INFILTRATE (14:22)
--- NOTE | 2024-06-11 14:34 | W.PM.PROC2 ---
Procedure Note - Detailed Date of Procedure 06/11/24 Pre-op Diagnosis Right Ovarian Mass Menometrorrhagia Post-op Diagnosis Same Procedure Performed Laparoscopic right salpingooophorectomy Hysteroscopy Dilation and sharp curettage Endometrial ablation Surgeon Javad Lozano MD Anesthesia General and Local (1% lidocaine) Findings Enlarged right ovary. The uterus is also a little enlarged. Otherwise, the pelvic anatomy is unremarkable. Normal-appearing right Fallopian tube, left tube and ovary, anterior and posterior cul de sac, bilateral round and uterosacral ligaments. On hysteroscopy the endometrial cavity is unremarkable. Both tubal ostia seen. Description of Procedure The patient was taken to the operating room where general endotracheal anesthesia was administered. She was prepared and draped in the usual sterile fashion in the dorsal lithotomy position. The bladder was drained with a red rubber catheter. A sterile speculum was inserted into the vagina and the anterior lip of the cervix was grasped with a single-toothed tenaculum. The acorn uterine manipulator was placed. The speculum was withdrawn. Gloves were changed and attention was turned to the abdomen. A skin incision was made in the left upper quadrant with a scalpel. The abdomen was tented and a 5 millimeter bladeless trocar trocar was advanced under direct laparoscopic visualization. Pneumoperitoneum was administered using carbon dioxide gas. A second 5 mm port was similarly advanced into the right lower quadrant, and a 10 mm port in the left lower quadrant, using bladeless trocars under direct laparoscopic visualization. A survey of the pelvis and abdomen yielded the findings noted above. The right ureter was identified. The right infundibulopelvic and uteroovarian ligaments were divided using the Ligasure device. The right tube and ovary were placed in an endobag and passed off to be sent to pathology. The pedicles were inspected and hemostasis was excellent. The Hiram cone was used to pass a single interrupted suture of 0 Vicryl to reapproximate the fascial incision in the LLQ. The trocars were withdrawn and the gas was allowed to escape. The skin incisions were reapproximated using 4-0 Vicryl in interrupted subcuticular fashion. Dermaflex was applied externally. Attention was redirected to the vagina, where the acorn manipulator was withdrawn and the speculum reintroduced. Ten mL of 1% lidocaine was administered in a paracervical block. The cervix was then gently dilated using Hegar dilators until an 8 mm dilator could be passed. Hysteroscopy was performed using sterile saline as a distention medium. Findings are as noted above. Sharp curettage was then performed, and endometrial curettings were collected on a Telfa pad and passed off to be sent to pathology. Finally, the the Sabrina device was advanced and endometrial ablation commenced without difficulty. The device was withdrawn and a second look was taken using the hysteroscope. Excellent coverage of the endometrial cavity was noted. The tenaculum was removed. Hemostasis was excellent. Sponge, lap, needle and instrument counts were correct. The patient was awakened and taken to the recovery room in stable condition. I was present and scrubbed through the entire procedure. Estimated Blood Loss 10 Drains No Packing No Pathology Yes (Right tube and ovary, endometrial curettings) Complications None Condition Stable Disposition PACU
[2024-06-11] MEDS: MIDAZOLAM HCL (*CRX) 2 MG/2 ML VIAL IV PUSH (15:18)
[2024-06-11] MEDS: fentaNYL CITRATE INJ (*CRX) 100 MCG/2 ML VIAL 25 MCG IV PUSH ×2 (15:20→15:39)
[2024-06-11] MEDS: oxyCODONE HCL (*CRX) 5 MG TAB IR PO (16:25)
== END 2024-06-11 17:00 | disposition home or self-care (01) ==
PROVIDERS: Visit Provider Obstetrics & Gynecology
PROC: 0UDB8ZZ Extraction of Endometrium, Via Natural or Artificial Opening Endoscopic (ICD-10-PCS; CPT 58558; principal; 2024-06-11 12:45)
DX: N83.291 Other ovarian cyst, right side (principal); N94.89 Other specified conditions associated with female genital organs and menstrual cycle; G89.18 Other acute postprocedural pain; F41.9 Anxiety disorder, unspecified; J45.909 Unspecified asthma, uncomplicated; E03.9 Hypothyroidism, unspecified; E07.9 Disorder of thyroid, unspecified; Z79.51 Long term (current) use of inhaled steroids; Z98.890 Other specified postprocedural states; Z87.891 Personal history of nicotine dependence; Z80.3 Family history of malignant neoplasm of breast; Z80.42 Family history of malignant neoplasm of prostate; Z82.49 Family history of ischemic heart disease and other diseases of the circulatory system
CPT/HCPCS: 58661; 58563; 36415; 86850; 86900; 86901; 88305; A9270; J1100; J1885; J2003; J2250; J2371; J2405; J2704; J3010; J7120